=== PATIENT | female | born 2000 | race Asian ===

== ENCOUNTER 2025-01-20 00:37 | Emergency (ER) | payer MEDICAID, SELFPAY ==
[2025-01-20 01:35] VITALS: BP 155/107; BP 162/101; PULSE 66; RESP 16; TEMP 36.5; O2SAT 97
[2025-01-20 01:36] VITALS: BMI 30.4
--- NOTE | 2025-01-20 01:46 | XR_ITS ---
Examination: PA lateral chest 2 views Technique: Upright PA lateral chest 2 views Exam date and time: January 20, 2025 0152 hrs. Indications: Onset chest pain today. Findings: Normal heart size Lungs are clear. The osseous structures are intact Impression: No active disease
--- NOTE | 2025-01-20 01:46 | EKG_ITS ---
[facility] Test Date: 2025-01-20 Pat Name: NAOMI MONTANEZ Department: Room: - Gender: Female Rhit: : 2000 Requested By: Godfrey Coppola ([facility]) Order Number: [id number] Reading MD: Godfrey Coppola ([facility]) Measurements Intervals [place] Rate: 69 P: 63 TN: 141 QRS: 68 QRSD: 93 T: 56 QT: 399 QTc: 430 Interpretive Statements SINUS RHYTHM No previous ECG available for comparison /store/S0/[id number]/ecg/[id number].pdf
--- NOTE | 2025-01-20 01:47 | PD.EDRME ---
Rapid Medical Screening Exam RME Arrival date/time: 01/20/25 00:37 24-year-old female presents emergency department complaining of left-sided chest pain that radiates to her arm and neck. Chief Complaint: General Adult/Misc Complain Time Seen by Provider: 01/20/25 01:22 Vital signs: Vital Signs Temperature 97.7 F 01/20/25 01:35 Pulse Rate 66 01/20/25 01:35 Respiratory Rate 16 01/20/25 01:35 Blood Pressure 162/101 H 01/20/25 01:35 Pulse Oximetry (%) 97 01/20/25 01:35 Oxygen Delivery Method Room Air 01/20/25 01:35 Vital signs reviewed by provider: Yes
[2025-01-20] MEDS: ACETAMINOPHEN 500 MG TABLET 1000 MG PO (01:50)
[2025-01-20 02:29] LABS: Basophils # (Auto) 0.1 Thou/mm3 (0.0-0.2); Basophils % (Auto) 1 % (0-2.5); Eosinophils # (Auto) 0.4 Thou/mm3 (0.0-0.5); Eosinophils % (Auto) 3 % (0-10); Hematocrit 39.4 % (36.0-46.0); Hemoglobin 13.6 g/dL (12.0-16.0); Immature Granulocytes % (Auto) 0 % (0-0); Immature Granulocytes Auto 0.03 Thou/mm3 (0.00-0.00); Lymphocytes # (Auto) 4.3 Thou/mm3 (1.0-4.8); Lymphocytes % (Auto) 39 % (10-50); Mean Corpuscular HGB Conc 34.5 g/dl (31.0-37.0); Mean Corpuscular Hemoglobin 29.3 pg (25.0-35.0); Mean Corpuscular Volume 85 fL (80-100); Monocytes # (Auto) 0.8 Thou/mm3 (0.0-0.8); Monocytes % (Auto) 7 % (0-12); Neutrophils # (Auto) 5.6 Thou/mm3 (1.8-7.7); Neutrophils % (Auto) 50 % (37-80); Nucleated Red Blood Cell % 0 /100 WBC (0); Platelet Count 334 Thou/mm3 (140-440); RDW Standard Deviation 37.7 fL (36.4-46.3); Red Blood Count 4.64 Miln/mm3 (4.00-5.20); White Blood Count 11.1 Thou/mm3 (3.6-11.0)
[2025-01-20 03:12] LABS: Alanine Aminotransferase 45 U/L (10-49); Albumin, Serum 4.6 gm/dL (3.5-5.0); Albumin/Globulin Ratio 1.8 (1.2-2.2); Alcohol, Blood Medical < 3.0 mg/dL (0-10.0); Alkaline Phosphatase 67 U/L (46-116); Anion Gap 6 (7-16); Aspartate Amino Transferase 27 U/L (0-34); BUN/Creatinine Ratio 13 Ratio (12-20); Bilirubin,Total 0.3 mg/dL (0.3-1.2); Blood Urea Nitrogen 10 mg/dL (9-23); Calcium 9.7 mg/dL (8.3-10.6); Calcium (Corrected) 9.7 mg/dL (8.5-10.1); Carbon Dioxide 28.9 mMol/L (20.0-31.0); Chloride 105 mMol/L (98-107); Creatinine (Component) 0.8 mg/dL (0.6-1.3); Estimated Creatinine Clearance 112.1 mL/min (>60); Globulin 2.6 gm/dL (2.3-3.5); Glucose 88 mg/dL (74-106); Osmolality,Calculated 277 (275-295); Potassium 3.6 mMol/L (3.4-5.1); Sodium 140 mMol/L (136-145); Total Protein 7.2 gm/dL (5.7-8.2); Troponin I < 0.002 ng/mL (0.0-0.045); eGFR > 60 See Note
[2025-01-20] MEDS: CYCLObenzaPRINE 5 MG TABLET PO (03:12)
[2025-01-20] MEDS: HYDROcodone/APAP 5/325 TABLET 1 TAB PO (03:13)
[2025-01-20] MEDS: KETOROLAC INJ 30 MG/ML VIAL 15 MG IVP (03:13)
[2025-01-20 03:38] LABS: HCG,Qualitative Serum Negative
[2025-01-20 04:32] VITALS: BP 126/97; PULSE 70; RESP 18; TEMP 36.6; O2SAT 99
--- NOTE | 2025-02-17 13:39 | EDNOTE_ITS ---
ED Neck Injury Pain RME/HPI General Chief Complaint: General Adult/Misc Complain Stated Complaint: NECK PAIN, CHEST AREA PAIN Time Seen by Provider: 01/20/25 01:22 Arrival date/time: 01/20/25 00:37 RME / HPI RME / HPI Narrative: 01/20/25 00:37 24-year-old female presents emergency department complaining of left-sided chest pain that radiates to her arm and neck. DR MORGAN MAIN ED EVALUATION: 24 yo female patient c/o neck pain and stiffness that radiates down her shoulder and her chest. Denies cough, SOB. Denies fever, chills. Denies LUNDBERG. Related Data Home Medications ?Medication ?Instructions ?Recorded ?Confirmed trazodone 50 mg tablet 50 mg PO HS 07/19/23 3 Previous Rx's ?Medication ?Instructions ?Recorded cyclobenzaprine 5 mg tablet 5 mg PO TID PRN muscle spa sm #14 01/20/25 tabs ibuprofen 600 mg tablet 600 mg PO Q6H PRN pain #30 t abs 01/20/25 Allergies Allergy/AdvReac Type Severity Reaction Status Date / Time No Known Allergies Allergy Verified 01/20/25 00:39 Review of Systems Review of Systems Systems Reviewed: All systems reviewed, normal except as documented ED Exam Narrative Physical exam: GENERAL APPEARANCE: alert and oriented x 4, well-developed, well-nourished, no acute distress HEENT: Normocephalic, atraumatic; trapezius muscle spasm, LROM secondary to pain and spasm LUNGS: No increased work of breathing, no respiratory distress HEART: Good peripheral perfusion ABDOMEN: non distended EXTREMITIES: atraumatic; no edema NEUROLOGIC: awake; alert and oriented x4; cranial nerves II-XII grossly intact PSYCHIATRIC: appropriate mood and affect SKIN: warm, dry, normal color; no rashes Course Course Course Narrative: Much improved on reexamination after medications Quality Measures none Orders Category Date Time Status EKG (ED ONLY) *Do not use* NOW Care 01/20/25 01:46 Completed EKG (ED Only) Stat Exams 01/20/25 01:46 Draft XR chest 2V Stat Exams 01/20/25 01:46 Completed Alcohol, Blood Medical Stat Lab 01/20/25 02:15 Completed CBC Stat Lab 01/20/25 02:15 Completed Comprehensive Metabolic Panel Stat Lab 01/20/25 02:15 Completed HCG,Qualitative Serum Stat Lab 01/20/25 02:15 Completed Troponin I Stat Lab 01/20/25 02:15 Completed Acetaminophen Tab [Tylenol ES Tab] Med 01/20/25 01:46 Discontinued 1,000 mg PO X1 ONE CYCLObenzaPRINE [Flexeril] Med 01/20/25 02:54 Discontinued 5 mg PO X1 ONE HYDROcodone*/APAP 5/325 [[place] 5/325] Med 01/20/25 03:05 Discontinued 1 tab PO X1 ONE Ketorolac Inj [Toradol Inj] Med 01/20/25 02:57 Discontinued 15 mg IVP X1 ONE Vital Signs Vital signs: Vital Signs Temperature 97.7 F 01/20/25 01:35 Pulse Rate 66 01/20/25 01:35 Respiratory Rate 16 01/20/25 01:35 Blood Pressure 162/101 H 01/20/25 01:35 Pulse Oximetry (%) 97 01/20/25 01:35 Oxygen Delivery Method Room Air 01/20/25 01:35 Neck Pain Patient data External records reviewed:: [facility] previous records Clinical information provided by:: patient and friend Social determinants that could affect healthcare access:: none Patient has the following chronic illnesses:: none How is presenting disease/condition affected by chronic disease/condition?: no chronic disease Evaluation data The following diagnostics were reviewed and interpreted by me:: other (specify) (not indicated) Lab and/or radiology exams considered but not ordered:: none Interpretation Summary: n/a Medications / Prescriptions Medications or Prescriptions considered but not ordered:: none Medication administrations:: Medication Administration History Discontinued Medications Acetaminophen (Acetaminophen 500 Mg Tablet) 1,000 mg PO X1 ONE Stop: 01/20/25 01:47 Last Admin: 01/20/25 01:50 Dose: 1,000 mg Documented By: LAMINE Hydrocodone Bitart/Acetaminophen (Hydrocodone/Apap 5/325 Tablet) 1 tab PO X1 ONE Stop: 01/20/25 03:06 Last Admin: 01/20/25 03:13 Dose: 1 tab Documented By: SERG Cyclobenzaprine HCl (Cyclobenzaprine 5 Mg Tablet) 5 mg PO X1 ONE Stop: 01/20/25 02:55 Last Admin: 01/20/25 03:12 Dose: 5 mg Documented By: SERG Ketorolac Tromethamine (Ketorolac Inj 30 Mg/Ml Vial) 15 mg IVP X1 ONE Stop: 01/20/25 02:58 Last Admin: 01/20/25 03:13 Dose: 15 mg Documented By: CB as above Consultations Consultation(s) initiated? (list below): No Diagnosis Neck Differential Diagnosis: whiplash injury to neck, cervical radiculopathy, torticollis and strain of neck muscle Most likely diagnosis given after review of the tests above:: muscle spasm Admission Indicated Admission indicated?: not indicated Admission Request Was there a request for admission?: No Disposition Plan Disposition Plan: Discharge Discharge Attestation Discharge Attestation: The patient and all family members were given an opportunity to ask questions an d understood the discharge instructions. Discharge instructions specifically effects, indications for sooner follow up or return to the emergency department, and the expected course of current diagnosis. Patient condition: Stable Discharge Plan Plan Patient Disposition: HOME (Self Care) Prescriptions/Referrals Prescriptions/Med Rec: New cyclobenzaprine 5 mg tablet 5 mg PO TID PRN (Reason: muscle spasm) Qty: 14 0RF ibuprofen 600 mg tablet 600 mg PO Q6H PRN (Reason: pain) Qty: 30 0RF No Action trazodone 50 mg Tablet 50 mg PO HS Referrals: No Primary/Family,Physician [Primary Care Provider] - In 1 week Problem List Clinical Impression: Neck muscle spasm Patient/Caregiver Discharge Instructions Education Materials: ED Neck Spasm, No Trauma Print Language: Kinyarwanda Stand Alone Forms: Charlene Award Info., Work/School Release, Patient Portal Info Letter
== END 2025-01-20 04:36 | disposition home or self-care (01) ==
PROVIDERS: Emergency Provider Emergency Medicine
DX: M62.838 Other muscle spasm (principal); R07.89 Other chest pain; M54.2 Cervicalgia
CPT/HCPCS: 36415; 71046; 80053; 80307; 80320; 84484; 84703; 85025; 93005; 99284; J1885; A9270; G0480

== ENCOUNTER 2025-05-29 22:46 | Emergency (ER) | payer MEDICAID, SELFPAY ==
[2025-05-29 22:47] VITALS: BMI 31.0
[2025-05-29 22:57] VITALS: BP 146/85; PULSE 97; RESP 18; TEMP 37.3; O2SAT 98
[2025-05-29] MEDS: DEXAMETHASONE SOD PHOS INJ 10 MG/ML VIAL PO (23:10)
--- NOTE | 2025-05-29 23:11 | PD.EDURI ---
Upper Respiratory Inf. RME/HPI General Chief Complaint: Flu Like Symptoms Stated Complaint: THROAT IRRITATION, COUGH Time Seen by Provider: 05/29/25 22:58 Arrival date/time: 05/29/25 22:46 24F with history of asthma presents to ED with several days of cough and sore throat. Limitations: no limitations Related Data Home Medications ?Medication ?Instructions ?Recorded ?Confirmed trazodone 50 mg tablet 50 mg PO HS 07/19/23 07/19/23 Previous Rx's ?Medication ?Instructions ?Recorded cyclobenzaprine 5 mg tablet 5 mg PO TID PRN muscle spasm #14 01/20/25 tabs ibuprofen 600 mg tablet 600 mg PO Q6H PRN pain #30 tabs 01/20/25 Allergies Allergy/AdvReac Type Severity Reaction Status Date / Time No Known Allergies Allergy Verified 01/20/25 00:39 Review of Systems Review of Systems Systems Reviewed: All systems reviewed, normal except as documented Constitutional Constitutional: Reports system reviewed and no additional complaints, except as documented, Denies fever(s) and Denies headache(s) ENT Ears, Nose, Mouth, and Throat: Reports as per HPI, Denies disequilibrium, Denies headache(s) and Reports throat swelling Cardiovascular Cardiovascular: Reports system reviewed and no additional complaints, except as documented, Denies chest pain and Denies dyspnea Respiratory Respiratory: Reports system reviewed and no additional complaints, except as documented, Reports as per HPI, Reports cough and Denies dyspnea Gastrointestinal Gastrointestinal: Reports system reviewed and no additional complaints, except as documented, Denies abdominal pain, Denies nausea and Denies vomiting Neurologic Neurologic: Reports system reviewed and no additional complaints, except as documented, Denies confusion, Denies disequilibrium and Denies headache(s) Psychiatric Psychiatric: Denies confusion Allergic/Immunologic Allergic/Immunologic: Reports throat swelling Past Medical History Past Medical History CARDIAC: Negative Congestive Heart Failure RESPIRATORY: Negative Chronic Obstructive Pulmonary Disease (COPD) GENITOURINARY: Negative Renal Disease ENDOCRINE: Negative Diabetes Mellitus Type 1 or Diabetes Mellitus Type 2 PSYCHO/SOCIAL: Positive Depression and Self-Mutilation Social History SMOKING STATUS: Never smoker ED Exam General Limitations: Present no limitations General appearance: Present alert and in no apparent distress Head Head exam: Present atraumatic Eye Eye exam: Present normal appearance, PERRL and EOMI ENT ENT exam: Present mucous membranes moist Expanded ENT Exam Throat exam: Present tonsillar erythema and tonsillomegaly; Absent tonsillar exudate, R peritonsillar mass, L peritonsillar mass or muffled voice Neck Neck exam: Present normal inspection, full ROM and trachea midline Chest Chest inspection: Present normal inspection and symmetric chest wall rise Respiratory Respiratory exam: Present normal lung sounds bilaterally Cardiovascular Cardiovascular exam: Present regular rate, normal rhythm and normal heart sounds Abdominal Exam Abdominal exam: Present soft and normal bowel sounds Extremities Exam Extremities exam: Present normal inspection and full ROM Back Exam Back exam: Present normal inspection and full ROM Neurological Exam Neurological exam: Present alert, oriented X3 and CN II-XII intact Psychiatric Psychiatric exam: Present normal affect and normal mood Skin Skin exam: Present warm, dry, intact and normal color Course Quality Measures none Orders Category Date Time Status Strep A Rapid Stat Lab 05/29/25 23:09 Completed Dexamethasone Inj [Decadron Inj] Med 05/29/25 23:03 Discontinued 10 mg PO X1 ONE Vital Signs Vital signs: Vital Signs Temperature 99.1 F 05/29/25 22:57 Pulse Rate 97 05/29/25 22:57 Respiratory Rate 18 05/29/25 22:57 Blood Pressure 146/85 H 05/29/25 22:57 Pulse Oximetry (%) 98 05/29/25 22:57 Oxygen Delivery Method Room Air 05/29/25 22:57 O2 at 98% on RA and WNLs Upper Respiratory Infection MDM Narrative MDM Narrative:: 24F with history of asthma presents to ED with several days of cough and sore throat. Physical exam reveals red and swollen oropharynx. Clear lungs and WOB. Patient is afebrile, calm, and alert. Swabs neg. Likely viral URI. Patient data External records reviewed:: [facility] previous records Clinical information provided by:: patient Social determinants that could affect healthcare access:: none Patient has the following chronic illnesses:: asthma How is presenting disease/condition affected by chronic disease/condition?: exacerbated by Evaluation data The following diagnostics were reviewed and interpreted by me:: lab results Lab and/or radiology exams considered but not ordered:: ordered Interpretation Summary: above Medications / Prescriptions Medications or Prescriptions considered but not ordered:: ordered Medication administrations:: Medication Administration History Discontinued Medications Dexamethasone Sodium Phosphate (Dexamethasone Sod Phos Inj 10 Mg/Ml Vial) 10 mg PO X1 ONE Stop: 05/29/25 23:04 Last Admin: 05/29/25 23:10 Dose: 10 mg Documented By: EF above Consultations Consultation(s) initiated? (list below): No Diagnosis Upper Respiratory Differential Diagnosis: upper respiratory infection, croup, otitis media, sinusitis, viral infection, bronchitis, influenza and pharyngitis Most likely diagnosis given after review of the tests above:: URI Admission Indicated Admission indicated?: not indicated Admission Request Was there a request for admission?: No Disposition Plan Disposition Plan: Discharge Discharge Attestation Discharge Attestation: The patient and all family members were given an opportunity to ask questions and understood the discharge instructions. Discharge instructions specifically effects, indications for sooner follow up or return to the emergency department, and the expected course of current diagnosis. Patient condition: Stable Discharge Plan Plan Patient Disposition: HOME (Self Care) Discharge Disposition comment: Stable Prescriptions/Referrals Prescriptions/Med Rec: No Action trazodone 50 mg Tablet 50 mg PO HS cyclobenzaprine 5 mg tablet 5 mg PO TID PRN (Reason: muscle spasm) Qty: 14 0RF ibuprofen 600 mg tablet 600 mg PO Q6H PRN (Reason: pain) Qty: 30 0RF Problem List Clinical Impression: Upper respiratory infection Patient/Caregiver Discharge Instructions Education Materials: ED URI, Viral, No Abx (Adult) Additional Instructions: Please follow-up with PCP within 24-48 hours and return immediately if symptoms worsen. Ibuprofen/Tylenol can be used simultaneously for greater fever/pain control. Benadryl is good for cough, congestion, and sleep. Print Language: Bruneian Stand Alone Forms: Patient Portal Info Letter ABIGAIL/CHECO Supervising Physician ABIGAIL/CHECO Supervising Physician: Dr. Mcintyre
[2025-05-29 23:51] LABS: Strep A Rapid Negative (Negative)
== END 2025-05-30 00:31 | disposition home or self-care (01) ==
LOC: SERX 05-30 00:11
PROVIDERS: Physician Assistant; Emergency Provider Emergency Medicine; PCP Physician Assistant Medical
DX: J06.9 Acute upper respiratory infection, unspecified (principal); J45.909 Unspecified asthma, uncomplicated
CPT/HCPCS: 87651; 99283; J1100

== ENCOUNTER 2025-06-18 14:46 | Emergency (ER) | payer MEDICAID, SELFPAY ==
[2025-06-18 14:47] VITALS: BMI 30.9
[2025-06-18 15:32] VITALS: BP 128/87; PULSE 85; RESP 20; TEMP 36.9; O2SAT 99
--- NOTE | 2025-06-18 17:42 | EDRME_ITS ---
Rapid Medical Screening Exam RME Arrival date/time: 06/18/25 14:46 Chief Complaint: Flu Like Symptoms Vital signs: Vital Signs Temperature 98.5 F 06/18/25 15:32 Pulse Rate 85 06/18/25 15:32 Respiratory Rate 20 06/18/25 15:32 Blood Pressure 128/87 H 06/18/25 15:32 Pulse Oximetry (%) 99 06/18/25 15:32 Oxygen Delivery Method Room Air 06/18/25 15:32 Pulse ox is 99% room air Vital signs reviewed by provider: Yes [facility] Narrative: Patient is a 24-year-old female who has been ill with a cough x 3 weeks with difficulty breathing and a sensation of not being able to get her air. Patient has been worked up numerous times since she has been ill and nothing appears to be working. Her biggest concern is that she is not able to get air.
--- NOTE | 2025-06-18 17:43 | XR_ITS ---
Examination: PA and lateral chest 2 views TECHNIQUE: Upright PA and lateral chest 2 views Date and time: June 18, 2025 1802 hours Comparison January 20, 2025 INDICATIONS: coughing 3 weeks difficulty breathing 2 days FINDINGS: Normal heart size Lungs are clear. Mild thoracic dextroscoliosis IMPRESSION: No pneumonia or pulmonary edema
[2025-06-18 18:17] LABS: Basophils # (Auto) 0.1 Thou/mm3 (0.0-0.2); Basophils % (Auto) 1 % (0-2.5); Eosinophils # (Auto) 0.4 Thou/mm3 (0.0-0.5); Eosinophils % (Auto) 3 % (0-10); Hematocrit 41.0 % (36.0-46.0); Hemoglobin 14.0 g/dL (12.0-16.0); Immature Granulocytes Auto 0.05 Thou/mm3 (0.00-0.00); Lymphocytes # (Auto) 3.7 Thou/mm3 (1.0-4.8); Lymphocytes % (Auto) 32 % (10-50); Mean Corpuscular HGB Conc 34.1 g/dl (31.0-37.0); Mean Corpuscular Hemoglobin 29.5 pg (25.0-35.0); Mean Corpuscular Volume 87 fL (80-100); Monocytes # (Auto) 0.7 Thou/mm3 (0.0-0.8); Monocytes % (Auto) 6 % (0-12); Neutrophils # (Auto) 6.7 Thou/mm3 (1.8-7.7); Neutrophils % (Auto) 58 % (37-80); Nucleated Red Blood Cell # 0.00 Thou/mm3 (0.00-0.00); Nucleated Red Blood Cell % 0 /100 WBC (0); Platelet Count 368 Thou/mm3 (140-440); RDW Standard Deviation 39.6 fL (36.4-46.3); Red Blood Count 4.74 Miln/mm3 (4.00-5.20); White Blood Count 11.6 Thou/mm3 (3.6-11.0)
[2025-06-18 18:34] LABS: Alanine Aminotransferase 30 U/L (10-49); Albumin, Serum 4.9 gm/dL (3.5-5.0); Albumin/Globulin Ratio 2.1 (1.2-2.2); Alkaline Phosphatase 81 U/L (46-116); Anion Gap 7 (7-16); Aspartate Amino Transferase 18 U/L (0-34); BUN/Creatinine Ratio 10 Ratio (12-20); Bilirubin,Total 0.3 mg/dL (0.3-1.2); Blood Urea Nitrogen 7 mg/dL (9-23); Calcium 10.2 mg/dL (8.3-10.6); Calcium (Corrected) 10.2 mg/dL (8.5-10.1); Carbon Dioxide 29.6 mMol/L (20.0-31.0); Chloride 105 mMol/L (98-107); Creatinine (Component) 0.7 mg/dL (0.6-1.3); Estimated Creatinine Clearance 129.2 mL/min (>60); Globulin 2.3 gm/dL (2.3-3.5); Glucose 80 mg/dL (74-106); Osmolality,Calculated 280 (275-295); Potassium 4.4 mMol/L (3.4-5.1); Sodium 142 mMol/L (136-145); Total Protein 7.2 gm/dL (5.7-8.2); eGFR > 60 See Note
--- NOTE | 2025-06-18 20:53 | PD.EDURI ---
Upper Respiratory Inf. RME/HPI General Chief Complaint: Flu Like Symptoms Stated Complaint: EXTREME COUGH MAKING BREATHING DIFFICULT X 2DAYS Time Seen by Provider: 06/18/25 20:47 Arrival date/time: 06/18/25 14:46 Limitations: no limitations RME / HPI RME / HPI Narrative: 24-year-old female no chronic medical history is here today with a 3-week history of a cough. She states this got worse yesterday and she felt short of breath. She states she has been to various sites including another ER where she was given Tessalon Perles. She states she was told she had a cold . She states she has a follow-up appointment with her doctor for this on Monday. She has no other acute complaints or concerns. Related Data Home Medications ?Medication ?Instructions ?Recorded ?Confirmed trazodone 50 mg tablet 50 mg PO HS 07/19/23 07/19/23 Previous Rx's ?Medication ?Instructions ?Recorded cyclobenzaprine 5 mg tablet 5 mg PO TID PRN muscle spasm #14 01/20/25 tabs ibuprofen 600 mg tablet 600 mg PO Q6H PRN pain #30 tabs 01/20/25 Allergies Allergy/AdvReac Type Severity Reaction Status Date / Time No Known Allergies Allergy Verified 06/18/25 14:48 Review of Systems Review of Systems Systems Reviewed: All systems reviewed, normal except as documented ED Exam General Limitations: Present no limitations General appearance: Present alert and in no apparent distress Head Head exam: Present atraumatic Eye Eye exam: Present normal appearance, PERRL and EOMI ENT ENT exam: Present normal exam and normal oropharynx Neck Neck exam: Present normal inspection, full ROM and trachea midline Chest Chest inspection: Present normal inspection and symmetric chest wall rise Respiratory Respiratory exam: Present normal lung sounds bilaterally Cardiovascular Cardiovascular exam: Present regular rate and normal rhythm Abdominal Exam Abdominal exam: Present soft and normal bowel sounds Extremities Exam Extremities exam: Present normal inspection and full ROM Back Exam Back exam: Present normal inspection and full ROM Neurological Exam Neurological exam: Present alert and oriented X3 Psychiatric Psychiatric exam: Present normal affect and normal mood Skin Skin exam: Present warm, dry, intact and normal color Course Quality Measures none Orders Category Date Time Status CXR2 [XR chest 2V] Stat Exams 06/18/25 17:43 Completed CBC Stat Lab 06/18/25 17:58 Completed CMP [Comprehensive Metabolic Panel] Stat Lab 06/18/25 17:58 Completed Vital Signs Vital signs: Vital Signs Temperature 98.5 F 06/18/25 15:32 Pulse Rate 85 06/18/25 15:32 Respiratory Rate 20 06/18/25 15:32 Blood Pressure 128/87 H 06/18/25 15:32 Pulse Oximetry (%) 99 06/18/25 15:32 Oxygen Delivery Method Room Air 06/18/25 15:32 Upper Respiratory Infection MDM Narrative MDM Narrative:: 24-year-old female here today with 3-week history of cough. She states she has been to numerous other clinics hospitals for this. She is currently taking Tessalon Perles after she was told she had a cold . On exam, patient is nontoxic-appearing in no visible signs of distress. Lung tones are clear bilaterally. Vital signs are stable. Her CBC, CMP, are unremarkable. Chest reveals clear and expanded lungs without mass or infiltrate. Influenza screens are negative. We discussed possible etiologies including self-limited viral infection. We also discussed possibly acid reflux. Patient was advised to continue her Tessalon Perles. Follow-up with her primary doctor. She may try Pepcid at nighttime. Return as needed for any worsening or emergent changes. Patient data External records reviewed:: None Clinical information provided by:: patient Social determinants that could affect healthcare access:: none Patient has the following chronic illnesses:: n/a How is presenting disease/condition affected by chronic disease/condition?: no chronic disease Evaluation data The following diagnostics were reviewed and interpreted by me:: lab results (CBC and CMP are unremarkable. Influenza screens are negative.) and radiology exam(s) (Clear expanded lungs without any mass or infiltrate.) Lab and/or radiology exams considered but not ordered:: n/a Interpretation Summary: Likely viral etiology Medications / Prescriptions Medications or Prescriptions considered but not ordered:: n/a Medication administrations:: n/a Consultations Consultation(s) initiated? (list below): No Diagnosis Upper Respiratory Differential Diagnosis: upper respiratory infection Most likely diagnosis given after review of the tests above:: Self-limiting viral syndrome Admission Indicated Admission indicated?: not indicated Admission Request Was there a request for admission?: No Disposition Plan Disposition Plan: Discharge Discharge Attestation Discharge Attestation: The patient and all family members were given an opportunity to ask questions and understood the discharge instructions. Discharge instructions specifically effects, indications for sooner follow up or return to the emergency department, and the expected course of current diagnosis. Patient condition: Stable Discharge Plan Plan Patient Disposition: HOME (Self Care) Patient condition on transfer: Stable Prescriptions/Referrals Prescriptions/Med Rec: No Action trazodone 50 mg Tablet 50 mg PO HS cyclobenzaprine 5 mg tablet 5 mg PO TID PRN (Reason: muscle spasm) Qty: 14 0RF ibuprofen 600 mg tablet 600 mg PO Q6H PRN (Reason: pain) Qty: 30 0RF Referrals: Omaira Figueroa PA-C [Primary Care Provider] - In 1 week Problem List Clinical Impression: Upper respiratory infection Patient/Caregiver Discharge Instructions Education Materials: ED URI, Viral, No Abx (Adult) Additional Instructions: -Continue taking your tessalon perles. -You may try taking OTC pepcid at night. -Follow up with your primary doctor. -Return here as needed for any worsening changes. Print Language: Macedonian Stand Alone Forms: Charlene Award Info., Work/School Release, Patient Portal Info Letter
[2025-06-18 21:06] VITALS: BP 138/72; PULSE 89; RESP 17; TEMP 36.7; O2SAT 97
== END 2025-06-18 21:07 | disposition home or self-care (01) ==
PROVIDERS: Physician Assistant; Emergency Provider Emergency Medicine; PCP Physician Assistant Medical
DX: J06.9 Acute upper respiratory infection, unspecified (principal)
CPT/HCPCS: 36415; 71046; 80053; 85025; 87400; 87502; 99283